=== PATIENT | female | born 1945 | race Caucasian/White ===

== ENCOUNTER 2018-04-27 13:39 | Emergency (ER) | payer MEDICARE ==
[2018-04-27] MEDS ORDERED: NS 0.9% 1000 ML* 2,000 ML IV ONE (13:57)
[2018-04-27 14:18] LABS: ABS Basophils 0.1 10^3/ul (0-0.2); ABS Eosinophils 0.4 10^3/ul (0-0.6); ABS Lymphocytes 0.8 10^3/ul (1.0-4.8); ABS Monocytes 0.4 10^3/ul (0-0.8); ABS Nucleated RBC 0 10^3/ul; Eosinophil % 7.6 % (0-6); Hematocrit 39 % (35-47); Hemoglobin 13.2 g/dl (12.0-16.0); Lymphocyte % 13.6 % (25-47); Mean Corpuscular HGB Conc 34 g/dl (31-36); Mean Corpuscular Hemoglobin 33 pg (27-31); Mean Corpuscular Volume 99 fL (80-97); Nucleated Red Blood Cells % 0; Platelet Count 213 10^3/ul (150-450); Red Blood Count 3.95 10^6/ul (4.00-5.40); Red Cell Distribution Width 13 % (10.5-15); White Blood Count 5.7 10^3/ul (3.5-10.8)
[2018-04-27 14:26] LABS: INR 0.9 (0.77-1.02)
--- NOTE | 2018-04-27 14:27 | RAD ---
HISTORY: SYNCOPE COMPARISONS: None VIEWS: 1: frontal portable view of the chest at 2:27 PM FINDINGS: LINES AND TUBES: None. CARDIOMEDIASTINAL SILHOUETTE: The cardiomediastinal silhouette is normal for portable technique. PLEURA: The costophrenic angles are sharp. No pleural abnormalities are noted. LUNG PARENCHYMA: The lungs are clear. ABDOMEN: The upper abdomen is clear. There is no subphrenic gas. BONES AND SOFT TISSUES: No bone or soft tissue abnormalities are noted. IMPRESSION: NO ACTIVE CARDIOPULMONARY DISEASE.
[2018-04-27 14:39] LABS: EGFR Non-African American 54.2 (>60)
[2018-04-27 16:32] LABS: Urine Appearance Clear; Urine Blood Negative (Negative); Urine Color Straw; Urine Ketones Negative (Negative); Urine Protein Negative (Negative); Urine Specific Gravity 1.006 (1.010-1.030); Urine Urobilinogen Negative (Negative)
[2018-04-27 16:35] VITALS: BP 176/106
--- NOTE | 2018-04-27 18:36 | ED ---
Chaparro Chiu Jade, scribed for Montez Alvarado MD on 04/27/18 at 1359 . Syncope/Near Syncope - HPI Summary HPI Summary: Pt is a 72 y/o female BIBA s/p syncope at 13:00. As per EMS, she had a syncopal episode and vomited after being outside in the heat. Upon EMS arrival, she had a weak radial pulse, they couldnt get a BP reading, she had a normal HR, and she was alert. Pt does not remember fainting; she states she remembers getting dizzy and blotchy vision. As per partner, her speech was slurry but became normal again, and she had water poured on her to cool her down. Pt denies any CP or racing heart. Now she feels fine and has normal movement. - History Of Current Complaint Time Seen by Provider: 04/27/18 13:50 Hx Obtained From: Patient, Family/Poultryman - Partner, EMS Onset/Duration: Sudden Onset, Resolved Context: Witnessed Aggravating Factor(s): Other - Sun Alleviating Factor(s): Other - Water poured on her to cool down, fluids Associated Signs And Symptoms: Dizzy, Other - Vision changes - Allergies/Home Medications Allergies/Adverse Reactions: Allergies Allergy/AdvReac Type Severity Reaction Status Date / Time diphenhydramine Allergy Unknown Verified 04/27/18 14:08 [From Benadryl] Reaction Details formaldehyde Allergy Unknown Verified 04/27/18 14:10 Reaction Details lanolin Allergy Rash Verified 04/27/18 14:13 latex Allergy Rash Verified 04/27/18 14:13 neomycin Allergy Unknown Verified 04/27/18 14:11 Reaction Details procaine [From Novocain] Allergy Unknown Verified 04/27/18 14:11 Reaction Details propylene glycol Allergy Rash Verified 04/27/18 14:13 shellfish derived Allergy Vomiting Verified 04/27/18 14:11 zinc oxide Allergy Unknown Verified 04/27/18 14:14 Reaction Details Home Medications: Home Medications Desloratidine (NF) [Clarinex (NF)] 5 mg PO DAILY PRN 04/27/18 [History Confirmed 04/27/18] Desoximetasone [Topicort] 0.25 % TOPICAL BID PRN 04/27/18 [History Confirmed ] Hydrocortisone 2.5% CREAM(NF) 1 applic TOPICAL BID PRN 04/27/18 [History Confirmed 04/27/18] LevoCETirizine TAB (NF) [Xyzal TAB (NF)] 5 mg PO DAILY 04/27/18 [History Confirmed 04/27/18] Montelukast Sodium TAB* [Singulair TAB*] 10 mg PO BEDTIME PRN 04/27/18 [History Confirmed 04/27/18] Triamcinolone 0.1% OINT(NF) [Kenalog 0.1% OINT(NF)] 1 applic TOPICAL DAILY 04/27 [History Confirmed 04/27/18] hydrOXYzine HCL TAB* [Atarax 25 MG TAB*] 25 - 50 mg PO Q6HR PRN 04/27/18 [ History Confirmed 04/27/18] predniSONE TAB* [Deltasone TAB*] 5 mg PO DAILY 04/27/18 [History Confirmed 04/27] PMH/Surg Hx/FS Hx/Imm Hx Sensory History: Reports: Hx Cataracts Neurological History: Reports: Other Neuro Impairments/Disorders - Sciatica - Surgical History Surgery Procedure, Year, and Place: Tonsillectomy Infectious Disease History: Denies: Traveled Outside the [place] in Last 30 Days - Family History Known Family History: Positive: Other - Leukemia - Social History Lives: With Family Alcohol Use: Occasionally Hx Tobacco Use: No Review of Systems Cardiovascular: Negative - Racing heart Negative: Chest Pain Neurological: Other - Dizziness Positive: Weakness, Syncope, Slurred Speech All Other Systems Reviewed And Are Negative: Yes Physical Exam - Summary Physical Exam Summary: General: well-appearing, no pain distress. Drenched in liquid, water or sweat unknown. Skin: warm, color reflects adequate perfusion, dry Head: normal Eyes: EOMI, ADONAY ENT: normal Neck: supple, nontender Respiratory: CTA, breath sounds present Cardiovascular: RRR Abdomen: soft, nontender Bowel: present Musculoskeletal: normal, strength/ROM intact Neurological: sensory/motor intact, A&O x3 Psychological: affect/mood appropriate Triage Information Reviewed: Yes Vital Signs On Initial Exam: Initial Vitals Temp Pulse Resp BP Pulse Ox 98.7 F 78 16 161/88 95 04/27/18 13:40 04/27/18 13:40 04/27/18 13:40 04/27/18 13:40 04/27/18 13:40 Vital Signs Reviewed: Yes Diagnostics - Vital Signs Vital Signs Temp Pulse Resp BP Pulse Ox 04/27/18 16:36 97.9 F 78 18 176/106 97 04/27/18 16:22 79 176/106 97 04/27/18 16:12 75 186/112 98 04/27/18 16:00 76 97 04/27/18 15:43 76 173/101 94 04/27/18 15:15 76 182/100 96 04/27/18 15:14 74 96 04/27/18 13:40 98.7 F 78 16 161/88 95 - Laboratory Lab Results: Lab Results 04/27/18 04/27/18 04/27/18 Range/Units 14:10 14:10 14:10 WBC 5.7 (3.5-10.8) 10^3/ul RBC 3.95 L (4.00-5.40) 10^6/ul Hgb 13.2 (12.0-16.0) g/dl Hct 39 (35-47) % MCV 99 H (80-97) fL MCH 33 H (27-31) pg MCHC 34 (31-36) g/dl RDW 13 (10.5-15) % Plt Count 213 (150-450) 10^3/ul MPV 8.0 (7.4-10.4) um3 Neut % (Auto) 70.1 (38-83) % Lymph % (Auto) 13.6 L (25-47) % Hunt % (Auto) 7.5 H (0-7) % Eos % (Auto) 7.6 H (0-6) % Baso % (Auto) 1.2 (0-2) % Absolute Neuts (auto) 4.0 (1.5-7.7) 10^3/ul Absolute Lymphs (auto) 0.8 L (1.0-4.8) 10^3/ul Absolute Monos (auto) 0.4 (0-0.8) 10^3/ul Absolute Eos (auto) 0.4 (0-0.6) 10^3/ul Absolute Basos (auto) 0.1 (0-0.2) 10^3/ul Absolute Nucleated RBC 0 10^3/ul Nucleated RBC % 0 INR (Anticoag Therapy) 0.90 (0.77-1.02) APTT 26.0 (26.0-36.3) seconds Sodium 135 (135-145) mmol/L Potassium 4.3 (3.5-5.0) mmol/L Chloride 101 (101-111) mmol/L Carbon Dioxide 29 (22-32) mmol/L Anion Gap 5 (2-11) mmol/L BUN 11 (6-24) mg/dL Creatinine 1.01 H (0.51-0.95) mg/dL Est GFR ( Amer) 69.7 (>60) Est GFR (Non-Af Amer) 54.2 (>60) BUN/Creatinine Ratio 10.9 (8-20) Glucose 110 H (70-100) mg/dL Lactic Acid (0.5-2.0) mmol/L Calcium 9.2 (8.6-10.3) mg/dL Magnesium 2.2 (1.9-2.7) mg/dL Total Bilirubin 0.50 (0.2-1.0) mg/dL AST 20 (13-39) U/L ALT 21 (7-52) U/L Alkaline Phosphatase 48 (34-104) U/L Total Creatine Kinase 49 (10-223) U/L CK-MB (CK-2) 1.2 (0.6-6.3) ng/mL Troponin I 0.00 (<0.04) ng/mL C-Reactive Protein 1.26 (< 5.00) mg/L Total Protein 6.0 L (6.4-8.9) g/dL Albumin 3.8 (3.2-5.2) g/dL Globulin 2.2 (2-4) g/dL Albumin/Globulin Ratio 1.7 (1-3) Lipase 34 (11.0-82.0) U/L TSH 8.35 H (0.34-5.60) mcIU/mL Free T4 0.70 (0.61-1.12) ng/dL Total T3 74 L (87-178) ng/dL Urine Color Urine Appearance Urine pH (5-9) Ur Specific In[place] (1.010-1.030) Urine Protein (Negative) Urine Ketones (Negative) Urine Blood (Negative) Urine Nitrate (Negative) Urine Bilirubin (Negative) Urine Urobilinogen (Negative) Ur Leukocyte Esterase (Negative) Urine Glucose (Negative) Urine Ascorbic Acid (Negative) 04/27/18 04/27/18 Range/Units 14:10 16:09 WBC (3.5-10.8) 10^3/ul RBC (4.00-5.40) 10^6/ul Hgb (12.0-16.0) g/dl Hct (35-47) % MCV (80-97) fL MCH (27-31) pg MCHC (31-36) g/dl RDW (10.5-15) % Plt Count (150-450) 10^3/ul MPV (7.4-10.4) um3 Neut % (Auto) (38-83) % Lymph % (Auto) (25-47) % Hunt % (Auto) (0-7) % Eos % (Auto) (0-6) % Baso % (Auto) (0-2) % Absolute Neuts (auto) (1.5-7.7) 10^3/ul Absolute Lymphs (auto) (1.0-4.8) 10^3/ul Absolute Monos (auto) (0-0.8) 10^3/ul Absolute Eos (auto) (0-0.6) 10^3/ul Absolute Basos (auto) (0-0.2) 10^3/ul Absolute Nucleated RBC 10^3/ul Nucleated RBC % INR (Anticoag Therapy) (0.77-1.02) APTT (26.0-36.3) seconds Sodium (135-145) mmol/L Potassium (3.5-5.0) mmol/L Chloride (101-111) mmol/L Carbon Dioxide (22-32) mmol/L Anion Gap (2-11) mmol/L BUN (6-24) mg/dL Creatinine (0.51-0.95) mg/dL Est GFR ( Amer) (>60) Est GFR (Non-Af Amer) (>60) BUN/Creatinine Ratio (8-20) Glucose (70-100) mg/dL Lactic Acid 1.1 (0.5-2.0) mmol/L Calcium (8.6-10.3) mg/dL Magnesium (1.9-2.7) mg/dL Total Bilirubin (0.2-1.0) mg/dL AST (13-39) U/L ALT (7-52) U/L Alkaline Phosphatase (34-104) U/L Total Creatine Kinase (10-223) U/L CK-MB (CK-2) (0.6-6.3) ng/mL Troponin I (<0.04) ng/mL C-Reactive Protein (< 5.00) mg/L Total Protein (6.4-8.9) g/dL Albumin (3.2-5.2) g/dL Globulin (2-4) g/dL Albumin/Globulin Ratio (1-3) Lipase (11.0-82.0) U/L TSH (0.34-5.60) mcIU/mL Free T4 (0.61-1.12) ng/dL Total T3 (87-178) ng/dL Urine Color Straw Urine Appearance Clear Urine pH 7.0 (5-9) Ur Specific In[place] 1.006 L (1.010-1.030) Urine Protein Negative (Negative) Urine Ketones Negative (Negative) Urine Blood Negative (Negative) Urine Nitrate Negative (Negative) Urine Bilirubin Negative (Negative) Urine Urobilinogen Negative (Negative) Ur Leukocyte Esterase Negative (Negative) Urine Glucose Negative (Negative) Urine Ascorbic Acid * A (Negative) Result Diagrams: 04/27/18 14:10 04/27/18 14:10 Lab Statement: Any lab studies that have been ordered have been reviewed, and results considered in the medical decision making process. - Radiology CXR Xray Interpretation: No Acute Changes - NO ACTIVE CARDIOPULMONARY DISEASE. ED physician reviewed radiology report. Radiology Interpretation Completed By: Radiologist - EKG 14:29 Cardiac Rate: NL - 75 bpm EKG Rhythm: Sinus Rhythm EKG Interpretation: RBBB, no ectopy, borderline prolonged QT interval, QTc 486 Re-Evaluation - Re-Evaluation First Eval Re-Evaluation Time: 15:28 Change: Unchanged Comment: Pt still feeling normal. Discussed lab and imaging results. Denies known thyroid issues. Second Eval Re-Evaluation Time: 15:54 Comment: Feeling fine. Will do a road-test in hopes of discharge. Course/Dx Course Of Treatment: NO CHEST PAIN OR PALPITATIONS. FEELS IMPROVED IN ED. DECLINES ADMISSION. F/U PMD; RETURN IF WORSE. - Diagnoses Provider Diagnoses: Heat exhaustion, Syncope Discharge - Sign-Out/Discharge Documenting (check all that apply): Discharge/Admit/Transfer - Discharge - Discharge Plan Condition: Stable Disposition: HOME Patient Education Materials: Heat Exhaustion (ED), Syncope (ED) Referrals: John Tsai MD [Primary Care Provider] - Additional Instructions: FOLLOW UP WITH YOUR DOCTOR. RETURN TO THE EMERGENCY DEPARTMENT FOR ANY WORSENING OF YOUR CONDITION; CHEST PAIN, SHORTNESS OF BREATH, YOU FEEL LIKE PASSING OUT OR QUESTIONS OR CONCERNS. - Billing Disposition and Condition Condition: STABLE Disposition: Home The documentation as recorded by the Chaparro minor Jade accurately reflects the service I personally performed and the decisions made by me, Montez Alvarado MD.
== END 2018-04-27 16:36 | disposition home or self-care (01) ==
LOC: ED 13:39
DX: R55 Syncope and collapse (principal); T67.5XXA Heat exhaustion, unspecified, initial encounter; X30.XXXA Exposure to excessive natural heat, initial encounter; Y92.9 Unspecified place or not applicable; I45.10 Unspecified right bundle-branch block; Z88.3 Allergy status to other anti-infective agents; Z88.8 Allergy status to other drugs, medicaments and biological substances; Z88.4 Allergy status to anesthetic agent
CPT/HCPCS: 36415; 71045; 80053; 81003; 82550; 82553; 83605; 83690; 83735; 84439; 84443; 84479; 84484; 85025; 85610; 85730; 86140; 93005; 96360; 96361; 99282

== ENCOUNTER 2018-11-08 14:22 | Emergency (ER) | payer MEDICARE ==
--- NOTE | 2018-11-08 15:12 | ED ---
Syncope/Near Syncope - HPI Summary HPI Summary: A 73 y/o F brought in by ambulance presents to ED s/p syncope onset [employer]. Pt was at [facility] eating lunch, which was her first meal of the day, which is usual, when she had a syncopal episode. Associated sx: dizziness, diaphoresis, vomiting. Pt [facility] over the sumemr due to syncopal episode caused by heat. Pt takes Prednisones and anti-histamines for her allergies. She states feeling OK at bedside. - History Of Current Complaint Chief Complaint: EDSyncope Time Seen by Provider: 11/08/18 15:10 Hx Obtained From: Patient Onset/Duration: Sudden Onset, Resolved Timing: Intermittent Episode Lasting Context: Witnessed, Loss Of Consciousness Activity At Onset: At Rest Associated Signs And Symptoms: Diaphoresis, Dizzy, Vomiting - Allergies/Home Medications Allergies/Adverse Reactions: Allergies Allergy/AdvReac Type Severity Reaction Status Date / Time diphenhydramine Allergy Unknown Verified 04/27/18 14:08 [From Benadryl] Reaction Details formaldehyde Allergy Unknown Verified 04/27/18 14:10 Reaction Details lanolin Allergy Rash Verified 04/27/18 14:13 latex Allergy Rash Verified 04/27/18 14:13 neomycin Allergy Unknown Verified 04/27/18 14:11 Reaction Details procaine [From Novocain] Allergy Unknown Verified 04/27/18 14:11 Reaction Details propylene glycol Allergy Rash Verified 04/27/18 14:13 shellfish derived Allergy Vomiting Verified 04/27/18 14:11 zinc oxide Allergy Unknown Verified 04/27/18 14:14 Reaction Details PMH/Surg Hx/FS Hx/Imm Hx Previously Healthy: Yes Respiratory History: Reports: Other Respiratory Problems/Disorders - Allergies Sensory History: Reports: Hx Cataracts Opthamlomology History: Reports: Hx Cataracts Neurological History: Reports: Other Neuro Impairments/Disorders - Sciatica - Surgical History Surgery Procedure, Year, and Place: Tonsillectomy Infectious Disease History: No Infectious Disease History: Denies: Traveled Outside the [place] in Last 30 Days - Family History Known Family History: Positive: Other - Leukemia - Social History Occupation: Employed Full-time Lives: With Family Alcohol Use: Occasionally Hx Substance Use: No Substance Use Type: Reports: None Hx Tobacco Use: No Smoking Status (MU): Never Smoked Tobacco Review of Systems Positive: Skin Diaphoresis Positive: Vomiting Neurological: Other - pos: dizziness Positive: Syncope All Other Systems Reviewed And Are Negative: Yes Physical Exam - Summary Physical Exam Summary: Appearance: The patient is well-nourished in no acute distress and in no acute pain. Skin: The skin is warm and dry and skin color reflects adequate perfusion. HEENT: The head is normocephalic and atraumatic. The pupils are equal and reactive. The conjunctivae are clear and without drainage. Nares are patent and without drainage. Mouth reveals moist mucous membranes and the throat is without erythema and exudate. The external ears are intact. The ear canals are patent and without drainage. The tympanic membranes are intact. Neck: the neck is supple with full range of motion and non-tender. There are no carotid bruits. There is no neck vein distension. Respiratory: Chest is non-tender. Lungs are clear to auscultation and breath sounds are symmetrical and equal. Cardiovascular: Heart is regular rate and rhythm. There is no murmur or rub auscultated. There is no peripheral edema and pulses are symmetrical and equal. Abdomen: The abdomen is soft and non-tender. There are normal bowel sounds heard in all four quadrants and there is no organomegaly palpated. Musculoskeletal: There is no back tenderness noted. Extremities are non-tender with full range of motion. There is good capillary refill. There is no peripheral edema or calf tenderness elicited. Neurological: Patient is alert and oriented to person, place and time. The patient has symmetrical motor strength in all four extremities. Cranial nerves are grossly intact. Deep tendon reflexes are symmetrical and equal in all four extremities. Psychiatric: The patient has an appropriate affect and does not exhibit any anxiety or depression. Triage Information Reviewed: Yes Vital Signs On Initial Exam: Initial Vitals Pulse Pulse Ox 62 97 11/08/18 14:35 11/08/18 14:35 Vital Signs Reviewed: Yes Diagnostics - Vital Signs Vital Signs Temp Pulse Resp BP Pulse Ox 11/08/18 14:44 63 17 138/77 97 11/08/18 14:40 96.9 F 62 16 138/77 97 11/08/18 14:35 62 97 - Laboratory Result Diagrams: 11/08/18 16:19 11/08/18 16:19 Lab Statement: Any lab studies that have been ordered have been reviewed, and results considered in the medical decision making process. - EKG 1555 Cardiac Rate: NL - 69bpm EKG Rhythm: Sinus Rhythm Summary of EKG Findings: RBBB. Non-diagnostic anterior T-wave septally. EKG on 04/27/18 reviewed. Course/Dx Course Of Treatment: Ms. Frazier had a turkey sandwich earlier today followed by a couple of donuts and a jug of water and began to feel weak and dizzy and fell out of her chair. Tried to help her up and she felt worse and believe she lost consciousness. When she regained which was soft only seconds later, she vomited profusely. By the time she got here she felt improved and back to her normal self. She was nontoxic in appearance on arrival and her vital signs are stable. She was given some IV fluid while labs were obtained and she was kept on the monitor. Her initial workup has been negative and she has remained stable. She is awaiting a second troponin and I estimate that she will be going home and that is also negative. This is likely a vagal reaction. - Diagnoses Provider Diagnoses: Syncope Discharge - Sign-Out/Discharge Documenting (check all that apply): Patient Departure - D/C - Discharge Plan Condition: Stable Disposition: HOME Patient Education Materials: Syncope in Older Adults (ED) Referrals: John Tsai MD [Primary Care Provider] - 2 Days Additional Instructions: Please return to the ED if you experience new or worsening symptoms. Follow up with your primary care provider in 2-3 days. - Billing Disposition and Condition Condition: STABLE Disposition: Home - Attestation Statements Document Initiated by Scribe: Yes Documenting Scribe: Christal Hunt Provider For Whom Brian is Documenting (Include Credential): Dr. Jw De La Torre MD Scribe Attestation: Christal Chiu scribed for Dr. Jw De La Torre MD on 11/08/18 at 1849. Scribe Documentation Reviewed: Yes Provider Attestation: The documentation as recorded by the Christal minor accurately reflects the service I personally performed and the decisions made by me, Dr. Jw De La Torre MD Status of Scribe Document: Viewed
[2018-11-08 16:28] LABS: ABS Basophils 0 10^3/ul (0-0.2); ABS Eosinophils 0.2 10^3/ul (0-0.6); ABS Lymphocytes 0.7 10^3/ul (1.0-4.8); ABS Monocytes 0.7 10^3/ul (0-0.8); ABS Neutrophils 6.4 10^3/ul (1.5-7.7); ABS Nucleated RBC 0 10^3/ul; Eosinophil % 2.4 %; Hematocrit 40 % (35-47); Hemoglobin 13.6 g/dl (12.0-16.0); Lymphocyte % 8.4 %; Mean Corpuscular HGB Conc 34 g/dl (31-36); Mean Corpuscular Hemoglobin 33 pg (27-31); Mean Corpuscular Volume 97 fL (80-97); Mean Platelet Volume 7.7 fL (7.4-10.4); Nucleated Red Blood Cells % 0.1; Platelet Count 216 10^3/ul (150-450); Red Blood Count 4.13 10^6/ul (4.00-5.40); Red Cell Distribution Width 13 % (10.5-15)
[2018-11-08 16:42] LABS: INR 0.88 (0.77-1.02)
[2018-11-08 16:45] LABS: Albumin/Globulin Ratio 1.9 (1-3); BUN/Creatinine Ratio 8.9 (8-20); Globulin 2.1 g/dL (2-4); Magnesium 2.2 mg/dL (1.9-2.7); Potassium 4.2 mmol/L (3.5-5.0); Total Bilirubin 0.4 mg/dL (0.2-1.0); Total Protein 6.1 g/dL (6.4-8.9)
[2018-11-08 17:22] LABS: TSH (Thyroid Stimulating Horm) 3.85 mcIU/mL (0.34-5.60)
[2018-11-08 20:16] VITALS: BP 152/88
== END 2018-11-08 20:15 | disposition home or self-care (01) ==
LOC: ED 14:22
DX: R55 Syncope and collapse (principal); R11.10 Vomiting, unspecified; R42 Dizziness and giddiness
CPT/HCPCS: 36415; 80053; 83605; 83735; 84443; 84484; 85025; 85610; 93005; 99283

== ENCOUNTER 2019-05-27 11:47 | Observation (INO) | payer MEDICARE ==
--- NOTE | 2019-05-27 12:19 | ED ---
Syncope/Near Syncope - HPI Summary HPI Summary: A 73 y/o female brought in by [facility] ambulance presents to [facility] with a chief complaint of a syncopal episode while sitting at the library. Per EMS, the patient woke up with confusion and vision loss but cleared her neurological examinations. She says that her eyes could not focus, her vision was getting narrow but not darker. She claims that she has had some previous syncopal episodes this year. She denies any fever, chills, erythema of eyes, sore throat , CP, SOB, cough, abdominal pain, N/V, dysuria, hematuria, myalgia, edema, palpitations, numbness or tingling. She says that she takes a lot of anti- histamines and Prednisone. She says that he has an "allergy thing" that occasionally causes redness of her face. She denies any Hx of CVA or seizures. Ciara esquivel was called at 12:23. - History Of Current Complaint Chief Complaint: EDSyncope Time Seen by Provider: 05/27/19 12:07 Hx Obtained From: Patient Onset/Duration: Sudden Onset, Resolved Timing: Intermittent Episode Lasting - Pt reports a Hx of syncopal episodes, being more frequent this year Context: Witnessed Associated Head Trauma: No Aggravating Factor(s): Nothing Alleviating Factor(s): Nothing Associated Signs And Symptoms: Dizzy, Lightheadedness - Allergies/Home Medications Allergies/Adverse Reactions: Allergies Allergy/AdvReac Type Severity Reaction Status Date / Time diphenhydramine Allergy Unknown Verified 04/27/18 14:08 [From Benadryl] Reaction Details formaldehyde Allergy Unknown Verified 04/27/18 14:10 Reaction Details lanolin Allergy Rash Verified 04/27/18 14:13 latex Allergy Rash Verified 04/27/18 14:13 neomycin Allergy Unknown Verified 04/27/18 14:11 Reaction Details procaine [From Novocain] Allergy Unknown Verified 04/27/18 14:11 Reaction Details propylene glycol Allergy Rash Verified 04/27/18 14:13 shellfish derived Allergy Vomiting Verified 04/27/18 14:11 zinc oxide Allergy Unknown Verified 04/27/18 14:14 Reaction Details PMH/Surg Hx/FS Hx/Imm Hx Respiratory History: Reports: Other Respiratory Problems/Disorders - Allergies Sensory History: Reports: Hx Cataracts Opthamlomology History: Reports: Hx Cataracts Neurological History: Reports: Other Neuro Impairments/Disorders - Sciatica - Surgical History Surgery Procedure, Year, and Place: Tonsillectomy Infectious Disease History: No Infectious Disease History: Denies: Traveled Outside the [place] in Last 30 Days - Family History Known Family History: Positive: Other - Leukemia - Social History Alcohol Use: Occasionally Hx Substance Use: No Substance Use Type: Reports: None Hx Tobacco Use: No Smoking Status (MU): Never Smoked Tobacco Review of Systems Negative: Fever, Chills Positive: Other - positive: eyes could not focus, vision was getting narrow but not darker. Negative: Erythema Negative: Sore Throat Negative: Palpitations, Chest Pain Negative: Shortness Of Breath, Cough Negative: Abdominal Pain, Vomiting, Nausea Negative: dysuria, hematuria Negative: Myalgia, Edema Positive: Rash - face Neurological: Other - positive: lightheaded, dizziness Positive: Syncope. Negative: Headache, Paresthesia, Numbness All Other Systems Reviewed And Are Negative: Yes Physical Exam - Summary Physical Exam Summary: Constitutional: Well-developed, Well-nourished, Alert. (-) Distressed Skin: Warm, Dry HENT: Normocephalic; Atraumatic Eyes: Conjunctiva normal Neck: Musculoskeletal ROM normal neck. (-) JVD, (-) Stridor, (-) Tracheal deviation Cardio: Rhythm regular, rate normal, Heart sounds normal; Intact distal pulses; The pedal pulses are 2+ and symmetric. Radial pulses are 2+ and symmetric. (-) Murmur Pulmonary/Chest wall: Effort normal. (-) Respiratory distress, (-) Wheezes, (-) Rales Abd: Soft. (-) Tenderness, (-) Distension, (-) Guarding, (-) Rebound Musculoskeletal: (-) Edema Lymph: (-) Cervical adenopathy Neuro: Alert, Oriented x3, Strength normal, Cranial nerves II-XII are grossly intact. (-) Dysmetria, (-) Nystagmus, (-) Ataxia by finger to nose testing, (-) Sensory deficit. Smile asymmetry on left, Left upper lip does not elevate as high as right. Psych: Mood and affect Normal Triage Information Reviewed: Yes Vital Signs On Initial Exam: Initial Vitals Temp Pulse Resp BP Pulse Ox 97.0 F 64 16 149/92 95 05/27/19 12:00 05/27/19 12:00 05/27/19 12:00 05/27/19 12:00 05/27/19 12:00 Vital Signs Reviewed: Yes - [place] Coma Scale Best Eye Response: 4 - Spontaneous Best Motor Response: 6 - Obeys Commands Best Verbal Response: 5 - Oriented Coma Scale Total: 15 Diagnostics - Vital Signs Vital Signs Temp Pulse Resp BP Pulse Ox 05/27/19 12:00 97.0 F 64 16 149/92 95 - Laboratory Result Diagrams: 05/27/19 12:41 05/27/19 12:41 Lab Statement: Any lab studies that have been ordered have been reviewed, and results considered in the medical decision making process. 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 No intracranial mass or hemorrhage is noted. ED physician has reviewed this imaging report. - EKG 12:41 Cardiac Rate: NL - 60 bpm EKG Rhythm: Sinus Rhythm Summary of EKG Findings: EKG at 12:41 showed NSR at 60 bpm, no STEMI. National Institutes Of Health - NIH Scale Level of Consciousness: Alert/Keenly Responsive Ask Patient the Month and His/Her Age: Both Correct Ask Pt to Open/Close Eyes and Golf Instructor/Release Non-Paretic Hand: Both Correctly Best Gaze (Only Horizontal Eye Movement): Normal Visual Field Testing: No Visual Loss Facial Paresis-Pt to Smile & Close Eyes or Grimace Symmetry: Normal/Symmetrical Motor Function - Right Arm: No Drift-Holds 10 Seconds Motor Function - Left Arm: No Drift-Holds 10 Seconds Motor Function - Right Leg: No Drift-Holds 10 Seconds Motor Function - Left Leg: No Drift-Holds 10 Seconds Limb Ataxia-Must be out of Proportion to Weakness Present: Absent Sensory (Use Pinprick to Test Arms/Legs/Trunk/Face): Normal Best Language (Describe Picture, Name Items): No Aphasia Dysarthria (Read Several Words): Normal Extinction and Inattention: No Abnormality Total Score: 0 Re-Evaluation - Re-Evaluation First Eval Re-Evaluation Time: 14:21 Change: Unchanged Comment: Discussed care with her and her . Course/Dx Course Of Treatment: A 73 y/o female brought in by [facility] ambulance presents to [facility] with a chief complaint of a syncopal episode while sitting at the library. Per EMS, the patient woke up with confusion and vision loss but cleared her neurological examinations. She says that her eyes could not focus, her vision was getting narrow but not darker. She claims that she has had some previous syncopal episodes this year. She denies any fever, chills, erythema of eyes, sore throat, CP, SOB, cough, abdominal pain, N/V, dysuria, hematuria, myalgia, edema, palpitations, numbness or tingling. She says that she takes a lot of anti-histamines and Prednisone. She says that he has an "allergy thing" that occasionally causes redness of her face. She denies any Hx of CVA or seizures. Ciara esquivel was called at 12:23. The physical exam revealed Smile asymmetry on left, Left upper lip does not elevate as high as right. GCS: 15. NIH: 0. 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 No intracranial mass or hemorrhage is noted. EKG at 12:41 showed NSR at 60 bpm, no STEMI. Blood work and chemistries obtained and are WNL. Case discussed with Dr. Damon, hospitalist, who accepted the patient for admission. The patient is agreeable with this plan. - Diagnoses Provider Diagnoses: Syncope - Physician Notifications Discussed Care of Patient With: Katherine Damon Time Discussed With Above Provider: 14:01 Instructed by Provider To: Admit As Inpatient Discharge - Sign-Out/Discharge Documenting (check all that apply): Patient Departure - admit Patient Received Moderate/Deep Sedation with Procedure: No - Discharge Plan Condition: Fair Disposition: ADMITTED TO [facility] Referrals: John Tsai MD [Primary Care Provider] - - Attestation Statements Document Initiated by Scribe: Yes Documenting Scribe: Suleman Singh Provider For Whom Taniaibe is Documenting (Include Credential): Bertrand Villela MD Scribe Attestation: Suleman Chiu, scribed for Bertrand Villela MD on 05/27/19 at 1543. Status of Scribe Document: Ready
[2019-05-27 13:01] LABS: Activated Partial Thrombo Time 27.6 seconds (26.0-38.0); INR 0.98 (0.82-1.09)
[2019-05-27 13:05] LABS: ABS Eosinophils 0.3 10^3/ul (0-0.6); ABS Lymphocytes 0.8 10^3/ul (1.0-4.8); ABS Monocytes 0.6 10^3/ul (0-0.8); ABS Neutrophils 4.5 10^3/ul (1.5-7.7); Eosinophil % 4.4 %; Hematocrit 39 % (35-47); Hemoglobin 13.3 g/dL (12.0-16.0); Lymphocyte % 13.1 %; Mean Corpuscular HGB Conc 34 g/dL (31-36); Mean Corpuscular Hemoglobin 33 pg (27-31); Mean Corpuscular Volume 97 fL (80-97); Mean Platelet Volume 7.9 fL (7.4-10.4); Platelet Count 210 10^3/uL (150-450); Red Blood Count 4.06 10^6 /uL (3.70-4.87); Red Cell Distribution Width 12 % (10-15); White Blood Count 6.2 10^3/uL (3.5-10.8)
[2019-05-27 13:15] LABS: Albumin 4.1 g/dL (3.2-5.2); Albumin/Globulin Ratio 1.9 (1-3); BUN/Creatinine Ratio 6.3 (8-20); Calcium 9.4 mg/dL (8.6-10.3); EGFR African American 70.2 (>60); Globulin 2.2 g/dL (2-4); Magnesium 2.3 mg/dL (1.9-2.7); Potassium 3.5 mmol/L (3.5-5.0); Total Bilirubin 0.6 mg/dL (0.2-1.0); Total Protein 6.3 g/dL (6.4-8.9)
[2019-05-27 13:29] LABS: TSH (Thyroid Stimulating Horm) 5.21 mcIU/mL (0.34-5.60)
[2019-05-27] MEDS ORDERED: Al Hydrox/Mg Hydrox/Simet LIQ* 30 ML UDC PO PRN (15:39)
[2019-05-27] MEDS ORDERED: Senna TAB PO PRN (15:39)
[2019-05-27] MEDS ORDERED: Ondansetron INJ* 2 MG/ML VIAL IV PRN (15:39)
[2019-05-27] MEDS ORDERED: Montelukast Sodium TAB* 10 MG PO PRN (15:49)
[2019-05-27] MEDS ORDERED: Artificial Tears* 15 ML BTL BOTH EYES PRN (15:50)
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
[2019-05-27] MEDS ORDERED: Dextran 70/Hypromellose Tears Eye Drops 15 ml BTL (for Artificials Tears) BOTH EYES PRN (16:38)
[2019-05-27] MEDS: Enoxaparin(*) 40 MG/0.4 ML SYR SUBCUT SCH (17:27)
[2019-05-27] MEDS: hydrOXYzine HCL TAB* 25 MG PO PRN (20:20)
[2019-05-27] MEDS: Acetaminophen TAB* 325 MG PO PRN (20:20)
--- NOTE | 2019-05-27 22:04 | HP ---
CC: Dr. Tsai; Dr. Schroeder * HISTORY AND PHYSICAL: DATE OF ADMISSION: 05/27/19 PROVIDER: FLORENTINO Heredia. ATTENDING PHYSICIAN: Dr. Katherine Damon.* (DICTATED BY FLORENTINO HEREDIA) PRIMARY CARE PROVIDER: Dr. Tsai. CONSULTING NEUROLOGIST: Dr. Schroeder. CHIEF COMPLAINT: Syncope. HISTORY OF PRESENT ILLNESS: Laura Frazier is a 73-year-old white female with past medical history of hypothyroidism, childhood asthma, environmental allergies, and dermatitis, who presents to the emergency department due to a witnessed syncopal event. The patient was at the library with her partner today and was sitting in a chair when her partner noticed that she made a loud sound and then was unconscious for 10 to 15 seconds. She then regained consciousness, was not interacting properly for about 10 to 15 minutes. The patient's partner was saying her name and then trying to get her to react and the patient was just staring blankly for about 10 to 15 minutes until EMS arrived. The patient's partner notes that during this episode of not interacting properly, she had tense upper extremities and clenched fist for an unknown period of time. The patient reports that after regaining consciousness , she had blurred vision for about 15 to 20 minutes and does remember the period of time of her partner trying to get her to interact and knows that she was not responding, but does not have full comprehension of this episode. She denies having any lightheadedness or dizziness or change in vision leading up to the episode of the brief period of loss of consciousness. This occurred while the patient was sitting in a chair, and she never fell out of chair and never had head trauma. The patient denies tongue biting and loss of bowel or bladder control. The patient did not feel dizziness or lightheadedness before the episode as well and denies chest pain, shortness of breath, or palpitations. The patient does note that she was feeling overheated and tired leading up to the event because of the humidity today. The patient also notes that because of the humidity today, she took 30 mg of prednisone because her allergies get worse and her dermatitis rash in her face are worsened in humidity. She takes a variable dose of prednisone. The patient's partner recalls the patient had a similar episode of blurred vision and syncope in April and July of 2018 where she then reported to the emergency department, but was not admitted to the hospital. The patient additionally denies unilateral weakness, numbness, or tingling, and the partner did not observe facial droop or slurred speech. EMERGENCY DEPARTMENT COURSE: The patient arrived to the emergency department as a code esquivel. Her vital signs were temperature 97.0, pulse rate 84, respiratory rate 16, oxygen saturation 95% on room air, and blood pressure 149/ 92. The patient had a brain CT emergently upon arrival, and the hospitalists were asked to evaluate the patient for admission. PAST MEDICAL HISTORY: 1. Hypothyroidism. 2. Various environmental allergies. 3. Dermatitis. 4. History of childhood asthma. PAST SURGICAL HISTORY: 1. Bilateral cataract removal. 2. Tonsillectomy. HOME MEDICATIONS: 1. Prednisone 1 mg to 5 mg p.o. daily. 2. Xyzal 5 mg p.o. daily. 3. Hydroxyzine 25 to 50 mg p.o. q.6 hours p.r.n. allergy symptoms. 4. Tacrolimus ointment 1 application topically b.i.d. to dermatitis rash. 5. Desiccated thyroid 15 mg p.o. daily. 6. Singulair 10 mg p.o. at bedtime p.r.n. allergy symptoms. ALLERGIES: The patient has a list of allergies to medications, none of which includes anaphylaxis, unknown reaction to BENADRYL. Unknown reaction to DYE. Rash to LANOLIN, rash to LATEX, unknown reaction to NEOMYCIN, unknown reaction to PROCAINE, rash to PROPYLENE GLYCOL. Shell fish allergy, reaction is vomiting. Unknown reaction to ZINC OXIDE. FAMILY HISTORY: Father at age 40 due to leukemia. Mother at age 90, reportedly due to old age. Mother had a history of anxiety. Sister at age 72 due to "disease similar to multiple sclerosis." SOCIAL HISTORY: The patient lives with her partner who she has been with for 35 plus years. 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 She has no children. Denies tobacco use and is a never smoker. She drinks 1 to 2 beers per day and denies illicit drug use, though admits to remote use of marijuana. The patient's partner, Nu Bowles, is the patient's surrogate medical decision maker should she need one, as well as her healthcare proxy. REVIEW OF SYSTEMS: An 11-point review of systems was completed and all pertinent positives and negatives are above in the HPI. All other systems are negative. PHYSICAL EXAMINATION GENERAL: Elderly overweight white female, lying in the hospital bed, appearing comfortable, in no acute distress, partner at bedside. HEENT: Head: Normocephalic, atraumatic. Eyes: Erythematous bulbar conjunctiva. PERRL. Sclerae anicteric. EOMI. No nystagmus. Visual myers are full to confrontation. ENT: Tongue without laceration with oral mucosa that appears dry. NECK: Supple without JVD. LUNGS: Clear to auscultation throughout. CARDIOVASCULAR: Regular rate and rhythm with no murmurs, rubs, or gallops. ABDOMEN: Normoactive bowel sounds x4 quadrants. Abdomen is soft, nontender, nondistended. EXTREMITIES: No clubbing, cyanosis, or edema. NEUROLOGIC: Speech is clear. Face is symmetrical. Tongue is midline. Sensation to light touch is intact and symmetrical throughout. Strength is 5/5 in all extremities. No ataxia noted. The patient is alert and oriented x4. Answering questions appropriately. SKIN: Blotchy area of erythema surrounding bilateral eyes, essentially over the nose, superior to the upper lip and inferior to the lower lip. This is consistent with her chronic dermatitis. Skin is otherwise warm, dry, and intact. 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 EKG: Normal sinus rhythm, 60 beats per minute. Right bundle-branch block is noted, which is consistent with previous EKG. White blood cell count 6.2, hemoglobin 13.3, hematocrit 39, platelet count 210. Sodium 130, potassium 3.4, chloride 95, carbon dioxide 30, anion gap 5, BUN 6, creatinine 0.95. Glucose 121. Lactic acid 1.5. LFTs unremarkable, triglycerides 142, cholesterol 69, LDL 156, HDL 45. TSH is 5.21. Calcium 9.4, magnesium 2.3. ASSESSMENT AND PLAN: Laura Frazier is a 73-year-old white female with past medical history of hypothyroidism, environmental allergies, and dermatitis, who presents to the emergency department with a witnessed episode of syncope. The patient will be admitted for observation for: 1. Loss of consciousness. This is possibly at best a syncopal episode; however , given the period afterwards of the patient not responding appropriately may have a worsened postictal phase. Dr. Schroeder recommends MRI of the brain and EEG. I have ordered seizure precautions. The patient already has a lipid panel ordered and I will order hemoglobin A1c for the morning. Possibly may have represented a transient ischemic attack as well, and I will order an echo with bubble study, which will also help investigate if this may be a true syncopal episode. I will order orthostatic vital signs as well and admit the patient on telemetry. Dr. Schroeder will follow. The patient did not have an elevated lactic acid; however, this does not rule out possible seizure. 2. Hyponatremia. The patient has sodium to 130. The patient does appear dry, although her BUN and creatinine ratio does not represent this; however, this may be the cause of her hyponatremia. We will continue to monitor this, and I will not do any intervention at this time. 3. Conjunctival erythema. This is consistent with the patient's known allergic rhinitis. I will order saline eye drops, which the patient uses at home at times. 4. Environmental atopic dermatitis. It appears the patient's rash is consistent with perioral dermatitis; however, she is unsure of her specific type of dermatitis, which she is treated for. She uses a cream at home, which is not a formula here, although her partner may bring it tomorrow, otherwise her home prednisone will be continued, which she uses as treatment for this rash in her home. Allergy medications of Singulair and hydroxyzine will be continued, and cetirizine will be continued in lieu of Xyzal. 5. FEN: Regular, restricted diet. We will monitor hyponatremia. No IV fluids at this time. 6. Code status: The patient is full code. 7. DVT prophylaxis: The patient has a DVT risk score of 2, and I have started Lovenox 40 mg subcu daily. TIME SPENT: Approximately 60 minutes were spent on this admission, approximately half this time was spent at the bedside. This case has been reviewed with my attending Dr. Katherine Damon, and she agrees with this plan of care. FLORENTINO HEREDIA [id number]/[facility] #: [id number] MTDD
[2019-05-27 23:19] LABS: Urine Appearance Clear; Urine Bilirubin Negative (Negative); Urine Blood Negative (Negative); Urine Color Yellow; Urine Glucose Negative (Negative); Urine Ketones Negative (Negative); Urine Nitrite Negative (Negative); Urine Protein Negative (Negative); Urine Urobilinogen Negative (Negative)
[2019-05-28 06:06] LABS: BUN/Creatinine Ratio 14.9 (8-20); Calcium 8.7 mg/dL (8.6-10.3); EGFR Non-African American 86.8 (>60); Potassium 3.5 mmol/L (3.5-5.0)
[2019-05-28] MEDS: predniSONE TAB* 1 MG PO SCH (11:12)
[2019-05-28] MEDS: Cetirizine* 10 MG TAB PO SCH (11:12)
[2019-05-28] MEDS: Acetaminophen TAB* 325 MG PO PRN ×2 (11:20→20:09)
--- NOTE | 2019-05-28 11:41 | ECHO ---
*[facility]* [place] [address] Fax #: [phone] Transthoracic Echocardiogram Patient: Laura Frazier : 1945 Study Date: 05/28/2019 Age: 73 Gender: F HR: 64 bpm Height: 62 in /157.5 cm BSA: 1.85 m^2 Weight: 184.6 lb /83.9 kg BMI: 33.8 kg/m^2 *Kitman: * Lindsay Rogers [facility] *Referring Physician: * O'Tali Menjivar *Reading Physician: * Karime Figueroa MD Indications: Syncope. History: Asthma. Conclusions Summary: 1. Left ventricle: The cavity size is normal. There is mild concentric hypertrophy. Systolic function is normal. The estimated ejection fraction is 55-60%. Doppler parameters are consistent with abnormal left ventricular relaxation (grade 1 diastolic dysfunction). 2. Atrial septum: Agitated saline contrast study following an increase in RA pressure induced by the Valsalva maneuver, shows a very small late [id number]-cj-[id number] shunt through a patent foramen ovale. 3. Mitral valve: There is mild regurgitation. 4. Tricuspid valve: There is trace to mild regurgitation. 5. No previous echocardiogram available. Study data: Transthoracic echocardiogram. Procedure: Transthoracic echocardiography was performed. Image quality was fair. A bubble study was performed. Complete 2D, spectral Doppler, and color flow Doppler. Location: Bedside. Patient status: Inpatient. Patient room number: 434. Rhythm: Normal sinus rhythm. Findings Left ventricle: The cavity size is normal. There is mild concentric hypertrophy. There is a prominent basal septal knuckle. Systolic function is normal. The estimated ejection fraction is 55-60%. Wall motion is normal; there are no regional wall motion abnormalities. Doppler parameters are consistent with abnormal left ventricular relaxation (grade 1 diastolic dysfunction). Right ventricle: The cavity size is normal. Systolic function is normal. Systolic pressure is within the normal range. Left atrium: The atrium is at the upper limits of normal in size. Right atrium: The atrium is normal in size. Atrial septum: Agitated saline contrast study following an increase in RA pressure induced by the Valsalva maneuver, shows a very small late hplsz-pp-wdaw shunt through a patent foramen ovale. Images 21 and 22. Mitral valve: The annulus is mildly calcified. The leaflets are mildly thickened. There is no evidence of stenosis. There is mild regurgitation. Aortic valve: The valve is trileaflet. The leaflets are mildly thickened. Thickening, consistent with sclerosis. There is no evidence of stenosis. There is no significant regurgitation. Tricuspid valve: The leaflets are normal thickness. There is no evidence of stenosis. There is trace to mild regurgitation. Pulmonic valve: The leaflets are normal thickness. There is no evidence of stenosis. There is trace regurgitation. Aorta: Ascending aorta: The ascending aorta is appears normal. Aortic arch: The aortic arch is appears normal. The aortic root is not dilated. Pericardium: A prominent pericardial fat pad is present. There is no significant pericardial effusion. Pulmonary arteries: Poorly visualized. Systolic pressure is within the normal range. Systemic veins: Inferior vena cava: Poorly visualized. Measurements Left ventricle Value Ref Aortic valve Value Ref ALMA ROSA, LAX 4.1 cm 3.8 - 5.2 Mingo diam, ED 1.8 cm ----- ESD, LAX 2.9 cm 2.2 - 3.5 Peak v, S 1.1 m/sec ----- FS, LAX 30 % 27 - 45 VTI, S 20.0 cm ----- PW, ED, LAX (H) 1.1 cm 0.6 - 0.9 Mean grad, S 2.0 mm Hg ----- FS 30 % 27 - 45 Peak grad, S 5.0 mm Hg ----- PW, ED (H) 1.1 cm 0.6 - 0.9 LVOT/AV, VTI ratio 1.05 ----- E', lat mingo, TDI (L) 6.5 cm/sec >=10.0 CHERELLE, VTI 3.30 cm^2 --- -- E/e', lat mingo, 10 CHERELLE, Vmax 2.57 cm^2 ----- TDI E', med mingo, TDI (L) 4.1 cm/sec >=7.0 Mitral valve Value Ref E/e', med mingo, 16 Peak E 0.64 m/sec ----- TDI Peak A 1.14 m/sec ----- E', avg, TDI 5.3 cm/sec Decel time 370 ms ----- E/e', avg, TDI 12 <=14 Peak E/A ratio 0.6 --- -- LVOT Value Ref Pulmonic valve Value Ref Diam, S 2.00 cm Peak v, S 1 m/sec ----- Area 3.1 cm^2 Peak grad, S 4.0 mm Hg ----- Peak terry, S 0.9 m/sec VTI, S 21.0 cm Tricuspid valve Value Ref Mean grad, S 2 mm Hg TR peak v 2.24 m/sec <=2.8 SV 65 ml Peak RV-RA grad, S 20 mm Hg ----- SV/bsa 35 ml/m^2 Aortic root Value Ref Ventricular septum Value Ref Root diam 3.4 cm <4.0 IVS, ED (H) 1.4 cm 0.6 - 0.9 Ascending aorta Value Ref Right ventricle Value Ref AAo AP diam, S 3.6 cm ----- ALMA ROSA, LAX 2.6 cm ALMA ROSA minor ax, A4C (H) 3.9 cm 1.9 - 3.5 Aortic arch Value Ref mid Arch diam 2.3 cm ----- Pressure, S 23 mm Hg Decending aorta Value Ref Left atrium Value Ref Erinn peak terry 0.55 m/sec ----- AP dim, ES 3.00 cm 2.70 - 3.80 Pulmonary artery Value Ref ML dim, A4C 3.6 cm Pressure, S 19.0 mm Hg ----- SI dim, A4C 5.3 cm Vol/bsa, ES, 1-p 23 ml/m^2 11 - 40 Inferior vena cava Value Ref A4C Diam 1.1 cm ----- Vol/bsa, ES, A/L 31 ml/m^2 16 - 34 Right atrium Value Ref SI dim, ES 4.2 cm 3.4 - 5.3 ML dim, ES, A4C 3.1 cm 2.6 - 4.4 SI dim, ES, A4C 4.2 cm 3.4 - 5.3 Estimated RAP 3 mm Hg Legend: (L) and (H) gabriel values outside specified reference range. Prepared and electronically signed by Karime Figueroa MD 05/28/2019 11:40
[2019-05-28] MEDS: Labetalol IV* 5 MG/ML 20 ML VIAL IV PUSH PRN (12:34)
--- NOTE | 2019-05-28 12:56 | PN ---
Subjective Date of Service: 05/28/19 Interval History: Pt notes a history if episodes of blurred vision, dizziness, followed by "passing out." This has occurred 3 times in the last approximately 18 months. Her partner notes that the last time this occurred, the patient had visual symptoms, dizziness, and then started shaking with clenched fists. She was sitting in a chair when this occurred. She did not fall out of the chair. She was awake, but unresponsive, afterwards, her partner notes. Pt states that these symptoms have not occurred since admission. She notes that she is feeling well with no visual changes. She denies CP, SOB, abdominal pain, n/v. She denies weakness in any extremity, difficulty with speech or swallowing. She denies headache. Objective Active Medications: Acetaminophen (Tylenol Tab*) 650 mg PO Q4H PRN Al Hydrox/Mg Hydrox/Simethicone (Maalox Plus*) 30 ml PO Q6H PRN Amlodipine Besylate (Norvasc Tab*) 5 mg PO DAILY MARI Artificial Tears (Natural Balance Tears Eye Drop) 1 drop BOTH EYES Q2H PRN Cetirizine HCl (Zyrtec*) 10 mg PO DAILY MARI Enoxaparin Sodium (Lovenox(*)) 40 mg SUBCUT Q24H MARI Hydroxyzine HCl (Atarax Tab*) 25 mg PO Q6HR PRN Labetalol HCl (Trandate Iv*) 5 mg IV PUSH Q6H PRN Metoprolol Succinate (Toprol Xl Tab*) 25 mg PO DAILY MARI Montelukast Sodium (Singulair Tab*) 10 mg PO BEDTIME PRN Ondansetron HCl (Zofran Inj*) 4 mg IV Q4H PRN Prednisone (Deltasone Tab*) 1 mg PO DAILY MARI Senna (Senokot Tab*) 1 tab PO DAILY PRN Vital Signs: Temp Pulse Resp BP Pulse Ox 98.7 F 67 16 200/110 98 05/28/19 11:59 05/28/19 11:59 05/28/19 11:59 05/28/19 11:59 05/28/19 11:59 Oxygen Devices in Use Now: None Appearance: Pt is sitting up in bed with HOB elevated. She is cooperative, appropriate, pleasant. She appears well and in no acute distress. Eyes: No Scleral Icterus, PERRLA Ears/Nose/Mouth/Throat: NL Teeth, Lips, Gums, Clear Oropharnyx, Mucous Membranes Moist, - - Perioral, periaorbital dermatitis Neck: NL Appearance and Movements; NL JVP, Trachea Midline Respiratory: Symmetrical Chest Expansion and Respiratory Effort, Clear to Auscultation Cardiovascular: NL Sounds; No Murmurs; No JVD, RRR, No Edema Abdominal: NL Sounds; No Tenderness; No Distention, No Hepatosplenomegaly Skin: - - Perioral, periaorbital dermatitis Neurological: Alert and Oriented x 3, NL Sensation, NL Muscle Strength and Tone Result Diagrams: 05/27/19 12:41 05/28/19 14:48 Assess/Plan/Problems-Billing Assessment: 73yof PMHx hypothyroidism, environmental allergies, dermatitis presents to ER after a syncopal event. - Patient Problems (1) Syncope Comment: -Syncopal episode x3 in last approximately 18 months -Neurology consulted; thank you for recommendations -ECHO reveals very small PFO, grade 1 diastolic dysfunction -EEG WNL -Tele NSR; HA1c, TSH WNL -Cardiology consulted (2) Hypertension Comment: -Pt has slow increase in BP; no previous dx of HTN -Labetolol 5 IV now -Daily Amlodipine 5, Toprol 25 with hold parameters (3) Hyponatremia Comment: -Pt appears euvolemic; admits to daily EtOH use -Continue to hold fluids and monitor Na -Urine Na, osmo ordered (4) Diastolic heart failure Comment: -Grade 1 diastolic HF noted on Echo -Pt started on BB, CCB for HTN (5) Hypothyroidism Comment: -Pt unsure of home medication -Records requested (6) Dermatitis Comment: -Continue home prednisone 1mg -Monitor for need for increase (7) DVT prophylaxis Comment: -Lovenox 40 (8) Full code status Status and Disposition: Observation. Discharge when stable.
[2019-05-28] MEDS: Metoprolol Succinate XL TAB* 25 MG PO SCH (13:27)
[2019-05-28] MEDS: amLODIPine TAB* 5 MG PO SCH (13:27)
--- NOTE | 2019-05-28 14:20 | EEG ---
ELECTROENCEPHALOGRAPHY: DATE OF STUDY: - ROOM #434 DATE OF DICTATION: 05/28/19 PATIENT OF: FLORENTINO Heredia; Dr. Tsai; and Dr. Schroeder. * CLINICAL PROBLEM: A 73-year-old woman being evaluated for episodes of possible syncope versus seizures including one yesterday. MEDICATIONS: Include: 1. Cetirizine. 2. Prednisone. 3. Enoxaparin. 4. Hydroxyzine. 5. Singulair. 6. Zofran. 7. Senokot. INTERPRETATION: With the patient awake, background cerebral activity consists of moderate amplitude posterior dominant 7 to 8 Hz rhythm. No activation procedures were done. The patient never falls asleep. No epileptiform potentials, focal abnormalities, or major asymmetries of background are present. IMPRESSION: This awake EEG is within normal limits. [id number]/CPS #: [id number] MTDD
[2019-05-28 15:40] LABS: Creatinine, Serum 0.7 mg/dL (0.51-0.95)
[2019-05-28 15:41] LABS: Renal Sodium Excretion 0.5 %; Urine Creatinine Concentration 50.72 mg/dL
[2019-05-28] MEDS: Enoxaparin(*) 40 MG/0.4 ML SYR SUBCUT SCH (16:10)
[2019-05-28] MEDS: Nitro 2% OINT* (Nitroglycerin) 1 INCH/PAK PAK TOPICAL SCH ×2 (16:41→23:37)
[2019-05-28] MEDS: hydrOXYzine HCL TAB* 25 MG PO PRN (20:09)
--- NOTE | 2019-05-28 20:11 | CONS ---
CC: Dr. Tsai; Dr. Figueroa; Hospitalist Service CARDIOLOGY CONSULTATION: DATE OF CONSULT: 05/28/19 HISTORY OF PRESENT ILLNESS: I was asked by the hospitalist service to see this 73- year-old female p tremaine, who was hospitalized after she had a syncopal episode. The patient indicated 3 syncopal episo riky for quite a few months. She relates them to heat and humidity and all of them were basically whi le she was sitting. She indicated that she feels dizzy, she feels a blurred vision, and then she aleida l pass out. She gives no chest pain, no palpitation, no tachycardia, no nausea, no vomiting, no shor tness of breath before the episodes. She does have a history of childhood asthma, environmental godwin rgies, dermatitis, and hypothyroidism. She followed up with Dermatology. She gives no history of my ocardial infarction. She was found to have significantly elevated blood pressure in the hospital. S he was not on blood pressure medication as an outpatient. Cardiology consult was further requested. There was some concern of seizures. Neurology was consulted. They did not believe there is some ne urological component and Cardiology was further consulted for further evaluation. She gives no histo ry of diabetes mellitus, no hyperlipidemia, no history of myocardial infarction, no history of macdonald ry artery disease. She gives no orthopnea, no PND, no fever, no chills, no skin rash, no tremors, no hematochezia is appreciated, no palpitation, no tachycardia is appreciated. Her review of all other systems essentially is negative. PAST MEDICAL HISTORY: History of dermatitis, hypothyroidism, and history of childhood asthma. PAST SURGICAL HISTORY: Bilateral cataract removal and tonsillectomy. MEDICATIONS: Her medications as an outpatient: 1. Prednisone 1 mg to 5 mg daily. 2. Hydroxyzine 25 to 50 mg daily. 3. Singulair 10 mg at bedtime. ALLERGIES: She has some long list of allergies including PROCAINE, ZINC OXIDE, LATEX, DIPHENHYDRAMIN E, shellfish. FAMILY HISTORY: No family history of premature coronary artery disease. SOCIAL HISTORY: She gives no history of smoking. No drinking. No illicit drug use. REVIEW OF SYSTEMS: Review of all other systems essentially is negative. PHYSICAL EXAM: On exam, she is awake, alert, and oriented. She is not in acute distress. She had n o symptoms of chest pain. Her vitals: Blood pressure was significantly elevated at 188/98, pulse 66 , she is in sinus rhythm, temperature 97.7, respiratory rate 20. Head and Neck: Normocephalic, atra umatic. Head, ears, nose, and throat essentially benign. Neck supple. JVP is not elevated. No car otid bruits. No masses in the neck are appreciated. Chest: Clear to auscultation. No rales, no wh eeze. No added sounds appreciated. Heart: Normal S1, S2. No added sounds. No gallops, no rubs. Abdomen: Benign, soft, positive bowel sounds. Extremities: No edema, no cyanosis, no clubbing. Sk in exam is normal. Psych: Normal affect and mood. CANE FURNITURE MAKER: No focal deficits appreciated. DIAGNOSTIC STUDIES/LAB DATA: EKG shows sinus rhythm, sinus bradycardia, heart rate 60 beats per yulia te, right bundle-branch block is appreciated. His labs showed white blood cells 6.2, hemoglobin 13.3, hematocrit 39, platelets 210. She does have sodium 130, potassium 3.5, chloride 94, BUN 10, creatinine 0.70. She does have LFTs normal. Cholest kiel 229, LDL 156, HDL 45, TSH 5.2. She did have an echocardiogram that was done today that showed normal left ventricular systolic funct ion, EF 55%, diastolic dysfunction, has very small late right to left shunt, mild mitral insufficienc y, orzga-[id number] tricuspid insufficiency. IMPRESSION: The patient is a 73-year-old female with: 1. Syncopal episode, of unclear etiology at the present time. 2. Echocardiogram showed normal left ventricular systolic function with diastolic dysfunction. 3. Very small late bubble study, which I doubt is contributing to her syncope. 4. Mild mitral insufficiency. 5. Right bundle-branch block. 6. Significantly elevated blood pressure. 7. History of dermatitis. 8. History of hypothyroidism. PLAN: The patient relates her episodes to heat, humidity, possible vasovagal, possible dehydration. At the present time continue hydration. I agree with the treatment for her significantly elevated b lood pressure. Given her baseline heart rate of 60, I would avoid rate limiting agents at the presen t time. I offered the patient a noninvasive stress test. She wants to wait and discuss this with Dr Arthur Tsai. I did recommend an outpatient 24-hour or 48-hour monitor or up to 3-week monitor if that i s indicated given her baseline resting heart rate of 60. She is in sinus rhythm. She is to avoid si gnificant alcohol, caffeinated drinks and stimulants. She is to have low-salt, low-fat diet. She is to do attempts to lose weight. It might be a good idea to evaluate for sleep apnea. I will leave t his at the discretion of the hospitalist and Dr. Tsai. I answered all her concerns and questions u p to her satisfaction. Thank you very much for asking us to participate in the care of this patient. TIME SPENT: More than half of at least 60 to 65 plus minutes was [id number]-[id number] in [facility]. [id number]/[facility] #: [id number]
[2019-05-29] MEDS: Labetalol IV* 5 MG/ML 20 ML VIAL IV PUSH PRN (04:21)
[2019-05-29] MEDS: Acetaminophen TAB* 325 MG PO PRN (04:26)
[2019-05-29] MEDS: hydrOXYzine HCL TAB* 25 MG PO PRN (04:26)
[2019-05-29] MEDS: Nitro 2% OINT* (Nitroglycerin) 1 INCH/PAK PAK TOPICAL SCH ×2 (05:18→11:21)
[2019-05-29 05:52] LABS: CO2 Carbon Dioxide 22 mmol/L (22-32); Chloride 94 mmol/L (101-111); Sodium 126 mmol/L (135-145)
[2019-05-29 05:58] LABS: BUN/Creatinine Ratio 14.1 (8-20); Blood Urea Nitrogen 9 mg/dL (6-24); EGFR African American 110.7 (>60); EGFR Non-African American 91.5 (>60); Glucose 103 mg/dL (70-100)
[2019-05-29 06:06] LABS: Anion Gap 10 mmol/L (2-11)
[2019-05-29] MEDS: predniSONE TAB* 1 MG PO SCH (08:13)
[2019-05-29] MEDS: Metoprolol Succinate XL TAB* 25 MG PO SCH (08:13)
[2019-05-29] MEDS: amLODIPine TAB* 5 MG PO SCH (08:13)
[2019-05-29] MEDS: Cetirizine* 10 MG TAB PO SCH (08:13)
[2019-05-29 11:21] VITALS: BP 138/84
--- NOTE | 2019-05-29 14:42 | DS ---
CC: Dr. Tsai; Dr. Figueroa * DISCHARGE SUMMARY: DATE OF ADMISSION: 05/27/19 DATE OF DISCHARGE: 05/29/19 PRIMARY CARE PROVIDER: Dr. Tsai. WET PROCESS MILLER HEAD: Dr. Figueroa. ATTENDING PHYSICIAN: Dr. Sears * (dictated by FLORENTINO Kerr). PRIMARY DIAGNOSES: 1. Syncope. 2. Hypertension. 3. Hyponatremia. 4. Grade 1 diastolic dysfunction. SECONDARY DIAGNOSES: 1. Hypothyroidism. 2. Dermatitis. 3. Environmental allergies. 4. History of childhood asthma. CONSULTATIONS WHILE IN THE HOSPITAL: 1. Neurology: Do not suspect stroke. Feels she needs cardiac workup. Recommend MRI to follow up on CT findings. Aggressively treat LDL and add aspirin if this shows an old stroke. Add EEG. 2. Cardiology consult. Episodes related to heat, humidity, possible vasovagal , possible dehydration. Continue hydration. Treat elevated blood pressure. Given baseline heart rate 60, I would avoid rate limiting agents. Offered noninvasive stress test. The patient will discuss with primary care provider. Recommended 24, 48, up to 3-week monitor. Avoid alcohol, caffeine, stimulants. Low-salt, low-fat diet. Attempt to lose weight. Evaluate for sleep apnea. 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 No intracranial mass or hemorrhage is noted. Brain MRI, 05/27/19, impression: No evidence for acute or subacute ischemia. Few small chronic lacunar infarcts. No acute intracranial process evident. Transthoracic echo, 05/28/19, summary: Left ventricle: Mild concentric hypertrophy. Systolic function normal. EF 50% to 55%. Doppler parameters consistent with abnormal left ventricular relaxation, grade 1 diastolic dysfunction. Atrial septum shows a very small late bdhth-pr-apxw shunt through a patent foramen ovale. Mitral valve: Mild regurgitation. Tricuspid valve: Trace- to-mild regurgitation. Electroencephalogram, 05/28/19, impression: The awake EEG is within normal limits. HISTORY OF PRESENT ILLNESS/HOSPITAL COURSE: Ms. Frazier is a 73-year-old female with past medical history of hypothyroidism, who presented to the ER on with complaints of a witnessed syncopal event. She states she was at the library with her partner, sitting in a chair and made a loud sound and became unconscious for a short period of time. She then had an episode of clenching of the fist and shaking of the upper extremities. After this, the patient was not communicative, but awake for a few minutes. The patient notes that she had blurred vision and dizziness prior to the syncopal event. She did not lose bowel or bladder function. She did not fall out of the chair. She notes that this had happened 2 times in the past approximately 1 year and typically occurred when the patient was outside in warmer weather. A yolanda esquivel was called in the ER and the patient was assessed. Neurology was consulted. She was admitted to the hospitalist service. Neurology recommended to follow up brain CT with an MRI of the head. This was performed and revealed no ischemic changes with small chronic lacunar infarcts. EEG was performed, which was within normal limits. Neurology suspects this is cardiac in nature. Cardiology consult was ordered. Transthoracic echocardiogram was also ordered and revealed grade 1 diastolic dysfunction and a very small PFO. Cardiology was consulted. They do not believe that PFO is contributing to syncope. They made suggestions for heart healthy diet with increased activity and attempts to lose weight. The patient is still deciding whether she will have a stress test or a Holter monitor. Recommendations are to follow up with Cardiology once she discusses this with her primary care provider. During the patient's admission, she was noted to have hypertension. She was treated with IV labetalol 5 mg x2 doses. She was given oral amlodipine and metoprolol. This will be continued outpatient with instructions to continue to monitor blood pressure. Hyponatremia. The patient was noted to have hyponatremia on admission. It worsened throughout her stay, down to 126. The patient is asymptomatic. She is noted to have increased consumption of beer, stating she drinks at least 2 beers per day. The patient's TSH was on the high end of normal. Cortisol level was 12.51. Urine osmo 256, urine sodium 48. This is likely beer potomania versus SIADH. The patient was given instructions for limiting oral intake of fluids to less than 1 L per day as well as decreasing alcohol consumption. BMP will be rechecked on Saturday prior to follow up with primary care provider, Dr. Tsai. At the time of discharge, the patient denies chest pain, shortness of breath, abdominal pain, nausea, vomiting, diarrhea, constipation. She denies headache, weakness, numbness, tingling in the upper or lower extremities. She denies dizziness, lightheadedness, syncope. She notes she has had no syncopal events since the day of admission. She is feeling well and is eager to be discharged. Ms. Frazier is stable for discharge. REVIEW OF SYSTEMS: A 10-point review of systems has been performed and all the pertinent positives and negatives are in the HPI. All other systems are negative. PHYSICAL EXAMINATION: Vital signs are temperature 97.8 oral, heart rate 62, respiratory rate 16, oxygen saturation 96% on room air, blood pressure 138/84: General: Ms. Frazier is a well-developed, well-nourished, obese, older white woman, who is sitting up in bed. She appears to be in no acute distress. She is pleasant and cooperative. HEENT: Normocephalic, atraumatic. Periorbital and perioral dermatitis noted, this is chronic. PERRL. Nonicteric sclerae. Oral mucous membranes are moist without lesions. Hearing is grossly intact. Cardiovascular: Regular rate and rhythm with S1, S2 present. There are no murmurs, rubs, clicks, or gallops. Respiratory: Symmetrical chest expansion without use of accessory muscles. Lungs clear to auscultation bilaterally without wheeze, rhonchi, or rales. Abdomen: Obese. Bowel sounds noted in all quadrants. The abdomen is soft. There is no tenderness to palpation. Musculoskeletal: The patient is able to move all of her extremities. Extremities: Skin warm and smooth bilaterally without clubbing, cyanosis, or edema. Radial and pedal pulses palpable. Neuro: The patient is awake. She is alert and oriented x3. She has equal strength in both upper and lower extremities. No foal neurological deficit. DISCHARGE PLAN: Ms. Frazier will be discharged to home. ACTIVITY: As tolerated. Increase activity. DIET: Heart healthy - low salt, low fat. Decrease alcohol, caffeine, stimulant intake. Fluid restriction of less than 1 quart total fluid intake per day. CONDITION: Good. MEDICATIONS: 1. Amlodipine 5. 2. Metoprolol XL 25. 3. Aspirin 81 mg. EDUCATION: 1. Get lab work completed on Saturday, prior to PCP appointment. 2. Monitor and record blood pressure at least daily, bring results to PCP at next office visit. Return to the ER if systolic blood pressure is severely elevated, greater than 180 to 200. 3. Follow up with primary care provider in 4 to 7 days. Discussed recent hospitalization, new medications, lipid results and possibly starting statin medication, hyponatremia and fluid restriction, referral for sleep apnea study. 4. Follow up with Cardiology within 1 month. Discussed stress test, event monitor. 5. Return to the ER or nearest hospital if you experience any worsening of symptoms, shortness of breath, chest pain or discomfort, dizziness, lightheadedness, loss of consciousness, high fevers, chills, or night sweats. This is a summarized report of a complex medical history and hospital stay. For further details, please see the entire medical record. TIME SPENT: Approximately 45 minutes was spent on this discharge, greater than half that time was spent [id number] with the patient and her partner discussing discharge plans and instructions. FLORENTINO LYNCH [id number]/CPS #: [id number] MARYANN
== END 2019-05-29 14:11 | disposition home or self-care (01) ==
LOC: ED 11:47 → MEDTELE 15:39
PROVIDERS: ADMIT Hospitalist; ATTEND Internal Medicine
DX: R55 Syncope and collapse (principal); I11.0 Hypertensive heart disease with heart failure; I50.30 Unspecified diastolic (congestive) heart failure; E87.1 Hypo-osmolality and hyponatremia; E03.9 Hypothyroidism, unspecified; L30.9 Dermatitis, unspecified; Z91.09 Other allergy status, other than to drugs and biological substances; Z87.09 Personal history of other diseases of the respiratory system; Z79.82 Long term (current) use of aspirin
CPT/HCPCS: 36415; 70450; 70551; 80048; 80053; 80061; 81003; 82533; 82570; 83036; 83605; 83735; 83935; 84300; 84443; 84484; 85025; 85610; 85730; 93005; 93306; 95816; 96365; 96372; 99284; A9270-GY; G0378; J1650

== ENCOUNTER 2024-03-12 07:45 | Observation (INO) ==
[~2024-03-12 07:45] MED LIST: Metoclopramide 5 MG/ML VIAL (10 mg) IV PRN; NS 0.45% 1000 ml BAG 1,000 ML IV SCH; Naloxone 0.4 mg VIAL 0.4 mg/ml 1 ml VIAL IV PRN; Ondansetron 4 mg VIAL 2 MG/ML 2 ml VIAL IV PRN; fentaNYL 100 mcg/2 ml 50 MCG/ML VIAL IV PRN
[2024-03-12] MEDS ORDERED: ceFAZolin 2 GM in NS PREMIX 2 GM/100 ML BAG IVPB ONE (08:00)
[2024-03-12 09:09] LABS: Rapid COVID-19 Molecular Undetected (Undetected)
[2024-03-12] MEDS ORDERED: fentaNYL 100 mcg/2 ml 50 MCG/ML VIAL ONE (09:13)
[2024-03-12] MEDS ORDERED: Midazolam 2 mg/2 ml VIAL 1 mg/ml 2 ml VIAL (2 mg) ONE (09:13)
[2024-03-12] MEDS ORDERED: Lidocaine 2% PF 5 ML VIAL ONE (09:13)
[2024-03-12] MEDS ORDERED: ROPIVACAINE 5 MG/ML 30 ML BTL (0.5%) ONE (10:06)
[2024-03-12] MEDS ORDERED: Bupivacaine 0.25% w/EPI 10 ML SDV ONE (11:12)
[2024-03-12] MEDS ORDERED: Dexamethasone IV 4 MG/ML VIAL 1 ml VIAL ONE (12:34)
[2024-03-12] MEDS ORDERED: Ondansetron 4 mg VIAL 2 MG/ML 2 ml VIAL ONE (12:34)
[2024-03-12] MEDS ORDERED: Propofol 10 MG/ML 20 ML BTL ONE (13:20)
[2024-03-12] MEDS ORDERED: Lactulose 30 ml UDC PO PRN (14:24)
[2024-03-12] MEDS ORDERED: Magnesium Hydroxide LIQ 30 ML UDC PO PRN (14:24)
[2024-03-12] MEDS ORDERED: Morphine 2 MG/ML SYRINGE IV PRN (14:24)
[2024-03-12] MEDS ORDERED: Ondansetron 4 mg VIAL 2 MG/ML 2 ml VIAL IV PRN (14:24)
[2024-03-12] MEDS ORDERED: Ondansetron ODT 4 mg TAB 4 MG TAB PO PRN (14:24)
[2024-03-12] MEDS: Lactated Ringers 1000 ml BAG 1,000 ML IV SCH ×2 (16:24→17:38)
[2024-03-12] MEDS: Acetaminophen IV 1 GM/100ML 1,000 MG/100 ML BAG IV ONE (17:31)
[2024-03-12] MEDS: Buffered Lidocaine 1% SYRIN 1 ml INTRADERM ONE (17:34)
[2024-03-12] MEDS: ceFAZolin 1 GM ADVAN 1 GM in NS 0.9% 50 ML 50 ML IVPB SCH (20:13)
[2024-03-12] MEDS: Magnesium Hydroxide LIQ 30 ML UDC PO SCH (20:16)
[2024-03-13 06:15] LABS: Hematocrit 32.1 % (35-45); Hemoglobin 10.9 g/dL (11.5-14.3); Mean Platelet Volume 7.9 fL (7.5-11.2); Platelet Count 240 10^3/uL (150-450)
[2024-03-13 06:17] LABS: Calcium 8.9 mg/dL (8.6-10.3); Creatinine, Serum 0.72 mg/dL (0.51-0.95); Potassium 4.5 mmol/L (3.5-5.0); eGFR CKD-EPI 86.6 (>60)
[2024-03-13] MEDS: Vitamin THERAPEUTIC TAB PO SCH (09:49)
[2024-03-13] MEDS: Cholecalciferol (VIT D3) 1,000 unit TAB PO SCH (09:49)
[2024-03-13 10:25] VITALS: BP 110/61
== END 2024-03-13 14:56 | disposition home or self-care (01) ==
LOC: SSU 07:45 → OR 07:45
PROVIDERS: ADMIT Orthopaedic Surgery Adult Reconstructive Orthopaedic Surgery; ATTEND Orthopaedic Surgery Adult Reconstructive Orthopaedic Surgery